=== PATIENT | female | born 1960 | race African-American/Black ===

== ENCOUNTER → 2022-07-01 | Outpatient (CLI) | payer SELFPAY ==
--- NOTE | 2022-07-01 07:58 | ECHOD_ITS ---
Reason For Study: CAD/ASHD Procedure This was a 2D Doppler, Color Flow transthoracic echocardiogram. Myocardial strain analysis was performed in this exam to aid in the assessment of cardiac function. Exam performed in department. Left Ventricle Normal LV size. Left ventricular systolic function is normal. The estimated ejection fraction is 60 %. Stage 1 diastolic dysfunction. No regional wall motion abnormalities noted. Right Ventricle Normal RV size. Normal systolic function. Atria Normal left atrium. Normal right atrium. Mitral Valve Normal mitral valve. Tricuspid Valve Normal tricuspid valve. Mild tricuspid valve insufficiency. Pulmonary artery systolic pressure is 20 mmHg. Aortic Valve Trisinus/trileaflet aortic valve. Pulmonic Valve Normal pulmonic valve. Great Vessels Mildly dilated aortic root. The pulmonary artery is normal size. Normal inferior vena cava. Pericardium/Pleural No pericardial effusion. MMode/2D Measurements & Calculations LVIDd: 4.6 cm IVSd: 0.70 cm Ao root diam: 3.7 cm LVIDs: 3.2 cm LVPWd: 0.77 cm RVDd: 3.2 cm FS: 32.0 % LAV(MOD-bp): 45.4 ml LVAd ap4: 22.7 cm2 LVAd ap2: 22.3 cm2 LAV(MOD-bp) Indexed: 22.2 ml/m2 LVLd ap4: 7.6 cm LVLd ap2: 7.6 cm LAV(MOD-sp2): 49.0 ml EDV(MOD-sp4): 56.4 ml EDV(MOD-sp2): 55.4 ml LAV(MOD-sp4): 32.7 ml EDV(sp4-el): 57.2 ml EDV(sp2-el): 55.9 ml LVAs ap4: 11.7 cm2 LVAs ap2: 11.9 cm2 LVLs ap4: 6.2 cm LVLs ap2: 6.6 cm ESV(MOD-sp4): 19.2 ml ESV(MOD-sp2): 18.8 ml ESV(sp4-el): 18.9 ml ESV(sp2-el): 18.2 ml EF(MOD-sp4): 66.0 % EF(MOD-sp2): 66.0 % EF(sp4-el): 67.0 % SV(MOD-sp4): 37.2 ml SV(MOD-sp2): 36.5 ml SV(sp4-el): 38.3 ml LA dimension(2D): 3.2 cm LA A4 area: 13.3 cm2 RA A4 area: 8.8 cm2 Doppler Measurements & Calculations MV E max taj: 63.8 cm/sec Lat Peak E' Taj: 10.9 cm/sec Med Peak E' Taj: 9.8 cm/sec MV A max taj: 77.2 cm/sec E/E' lat: 5.8 E/E' med: 6.5 MV E/A: 0.83 Ao V2 max: 109.4 cm/sec LV V1 max: 89.3 cm/sec PA V2 max: 65.0 cm/sec Ao max P.8 mmHg LV V1 max P.2 mmHg Ao V2 mean: 72.4 cm/sec Ao mean P.4 mmHg Ao V2 VTI: 20.8 cm TR max taj: 209.0 cm/sec TR max P.5 mmHg ECHO/Echo Complete Interpretation Summary Normal LV size. Left ventricular systolic function is normal. The estimated ejection fraction is 60 %. Pulmonary artery systolic pressure is 20 mmHg. Stage 1 diastolic dysfunction. The global longitudinal strain is normal. The global longitudinal strain = -19. 2 % (normal). Ordering Physician: Bin Heller Referring Physician: Bin Heller Performed By: Mabel Nash RDCS, RVT
--- NOTE | 2022-07-01 07:58 | CDU_ITS ---
Reason For Study: Bruit Rt. Velocities/BP Lt. Velocities/BP Prox CCA 74.7/23.9 cm/sec. Prox CCA 76.5/23.7 cm/sec. Mid CCA 74.7/25.2 cm/sec. Mid CCA 65.4/18.8 cm/sec. Dist CCA 68.2/25.2 cm/sec. Dist CCA 67.9/24.9 cm/sec. Prox ICA 75/23.4 cm/sec. Prox ICA 58.1/18.8 cm/sec. Mid ICA 69.6/28.9 cm/sec. Mid ICA 71.6/32.3 cm/sec. Dist ICA 94.8/35.3 cm/sec. Dist ICA 66.7/29.8 cm/sec. Rt. ICA/CCA = 1.27. Lt. ICA/CCA = 1.05. Prox ECA 55.2/9.5 cm/sec. Prox ECA 35.4/8.4 cm/sec. Rt. Vert. 52/20 cm/sec. Lt. Vert. 50.7/20 cm/sec. Right Extracranial There is intimal thickening but no significant atherosclerotic plaque noted in the right common carotid artery. There is intimal thickening but no significant atherosclerotic plaque noted in the right internal carotid artery. There is intimal thickening but no significant atherosclerotic plaque noted in the right external carotid artery. Antegrade flow is noted in the right vertebral artery. Left Extracranial There is intimal thickening but no significant atherosclerotic plaque noted in the left common carotid artery. There is intimal thickening but no significant atherosclerotic plaque noted in the left internal carotid artery. There is intimal thickening but no significant atherosclerotic plaque noted in the left external carotid artery. Antegrade flow is noted in the left vertebral artery. Procedure Carotid Duplex 71945. This is a Carotid Duplex examination using B-mode, color flow and specral Doppler. Exam performed in department. VL/Carotid Duplex Ultrasound Interpretation Summary Normal right extracranial internal carotid. Normal left extracranial internal carotid. The Right vertebral is patent and antegrade. The Left vertebral is patent and antegrade. Ordering Physician: Bin Heller Performed By: Aida Moser RVT
--- NOTE | 2022-07-01 08:01 | CT_ITS ---
STUDY: CT CHEST WITHOUT CONTRAST REASON FOR EXAM: Female, 62 years old. CAD RADIATION DOSAGE (If Supplied By Facility): CTDIvol = ( 9.94 ) mGy, DLP = ( 448.90 ) mGycm TECHNIQUE: Transaxial imaging was performed without the administration of intravenous contrast material. Multiplanar coronal and sagittal images were reformatted. Individualized dose optimization techniques were used for this CT. COMPARISON: No relevant priors. FINDINGS: CHEST There is evidence of bilateral breast prostheses. The lungs are normal. There is no demonstrated pleural abnormality. Normal heart and pericardium. No evidence of coronary artery calcification. Normal mediastinum. Normal hilar regions. Normal unenhanced pulmonary arteries. Normal aorta arch and descending thoracic aorta. Normal osseous structures. Small gallstones. CT/Limited Chest CT Cardiac Only IMPRESSION: Small gallstones. Electronically Signed: Yoni Grimm MD at 11:54 EDT ,
[2022-07-01 08:21] LABS: Absolute Lymphocyte Count 1.34 X10^3/uL (0.83-4.51); Absolute Neutrophil Count 0.9 X10^3/uL (2.0-7.7); Basophil# 0.01 X10^3/uL; Basophil% 0.4 % (0-1); Eosinophil# 0.04 X10^3/uL; Eosinophils% 1.6 % (0-5); Hematocrit 43.6 % (37-47); Hemoglobin 13.9 g/dL (12.0-15.0); Lymphocyte # 1.34 X10^3/ul (0.83-4.51); Lymphocyte % 52.1 % (19-41); Mean Corp Hgb Conc 31.9 g/dL (32-36); Mean Corpuscular Hgb 29.6 pg (27.0-32.0); Mean Corpuscular Volume 92.8 fL (81-99); Mean Platelet Vol. 11.5 fl (6.2-12.0); Monocyte# 0.27 X10^3/uL; Monocyte% 10.5 % (0-10); NRBC Flagged by Analyzer 0 % (0-5); Neutrophil # 0.91 X10^3/uL (2.7-7.7); Neutrophil % 35.4 % (47-70); POSITIVE DIFFERENTIAL YES; Platelet Count 171 K/mm3 (150-450); RBC Distribution Width CV 13.6 % (11.6-14.6); RBC Distribution Width SD 46.6 fl (35.1-43.9); White Blood Count 2.6 K/mm3 (4.4-11.0)
[2022-07-01 08:23] LABS: Differential Indicated SCAN CRITERIA MET
--- NOTE | 2022-07-01 09:00 | EKG12_ITS ---
Test Reason : CAD Blood Pressure : / mmHG Vent. Rate : 063 BPM Atrial Rate : 063 BPM P-R Int : 172 ms QRS Dur : 094 ms QT Int : 412 ms P-R-T Axes : 044 030 061 degrees QTc Int : 421 ms Normal sinus rhythm Normal ECG No previous ECGs available Confirmed by ZBIGNIEW DENISE, BIN ([id number]), department editor SOLEDAD ROY ([id number]) on 07/28/2022 8:48:00 AM Referred By: Bin Heller Confirmed By:BIN HELLER MD
[2022-07-01 09:08] LABS: Platelet Estimate ADEQUATE (ADEQ); Red Cell Morphology NORM C+C NORMAL (NORM C&C)
[2022-07-01 09:11] LABS: AST(SGOT) 24 U/L (15-37); Alanine Aminotransfer ALT/SGPT 40 U/L (13-56); Albumin, Serum 3.8 g/dL (3.2-5.0); Alkaline Phosphatase 41 U/L (45-117); Anion Gap 4 (5-15); BUN 13 mg/dL (7-18); BUN/Creat Ratio 16.5 RATIO (10-20); Calcium,Total 9.6 mg/dL (8.5-10.1); Chloride 108 mmol/L (98-107); Cholesterol 140 mg/dL (200); Creatinine, Serum 0.79 mg/dL (0.55-1.02); EST Glomerular Filtration Rate 79 mL/min (>60); Est Glom Filt Rate - Afr Amer 95 mL/min (>60); Globulin 3.7 g/dL (2.2-4.2); Glucose 92 mg/dL (74-106); High Density Lipoprotein 57 mg/dL; Potassium 4.5 mmol/L (3.5-5.1); Protein, Total 7.5 g/dL (6.4-8.2); Sodium Level 144 mmol/L (136-145); Thyroid Stim Hormone (TSH) 1.61 uIU/mL (0.358-3.74); Triglycerides 50 mg/dL; Very Low Density Lipoprotein 10 mg/dL (5-40)
[2022-07-01 11:05] VITALS: BP 133/89; PULSE 82; RESP 14; O2SAT 100
[2022-07-01 11:06] VITALS: BP 133/89; PULSE 79; RESP 16; O2SAT 100; BMI 24.0
--- NOTE | 2022-07-01 12:48 | CA.SCORE ---
Calcium Scoring Date of Study:: 07/01/22 Indications Indications: Rule out CAD Coronary Calcium Scoring: High-resolution Computed Tomographic imaging of the chest was performed on [07/01/22 ], with particular attention paid to the coronary arteries. Images from the examination were analyzed for the presence and extent of coronary artery calcification , using coronary calcium quantification software. The patient tolerated the procedure well and there were no complications. The results of the coronary calcification analysis are provided below. Findings Coronary Artery Left Main (LM): 0 Left Anterior Descending (LAD): 0 Left Circumflex (LCX): 0 Right Coronary Artery (RCA): 0 Total Agatston Score: 0 Percentile Ranking: Places the patient at the 25th percentile ranking Calcium Scoring Interpretation: 0 No identifiable atherosclerotic plaque. Very low cardiovascular disease risk. <5% chance of presence coronary artery disease A Negative Examination 1-10 Minimal Plaque burden. Significant coronary artery disease very unlikely. 11-100 Mild plaque burden. Likely mild or minimal coronary atherosclerosis. 101-400 Moderate plaque burden Moderate non-obstructive coronary artery disease highly likely. Over 400 Extensive plaque burden. High likelihood of at least one significant coronary stenosis (>50% diameter) Calcium Score: 0 Negative Examination
--- NOTE | 2022-07-01 12:51 | STRESSREP ---
Stress Test Report Exercise myocardial perfusion stress test. 62-year-old lady with a history of chest pain. Stress protocol: Resting EKG demonstrates normal sinus rhythm with a rate of 69 bpm normal intervals are noted resting blood pressure is 128/84 mmHg. The patient exercised according to the regular Alexandru protocol for 4 minutes and 31 seconds completing 131 seconds into stage II of the Alexandru protocol. The maximum heart rate attained was 157 bpm which was 98% of max impact at heart rate the maximum workload was 7 metabolic equivalents. At rest there were no ST or T wave changes noted to suggest ischemia and at peak exercise upsloping ST changes were noted which did not meet the criteria for ischemia. No clinical angina was noted. The peak blood pressure was 162/80 mmHg. Myocardial perfusion protocol. 11.1 mCi of technetium 99m sestamibi was injected at rest. The patient exercised according to the regular Alexandru protocol. At peak exercise 33.8 mCi of technetium 99m sestamibi was injected stress images were obtained stress and rest images were reconstructed in comparing the short axis vertical long and horizontal long axis. Gated images were also obtained. Perfusion SPECT analysis: Review of the stress images demonstrate normal uptake of tracer noted in all areas of the myocardium. The resting images similar demonstrate normal uptake of tracer noted in all areas of the myocardium. No areas of reversibility are noted to suggest ischemia and no previous infarct is noted. Gated SPECT analysis: The gated ejection fraction is 69%. Conclusion: Normal exercise myocardial perfusion stress test at a moderate workload. Preserved ejection fraction.
== END | disposition home or self-care (01) ==
PROVIDERS: Referring Provider Internal Medicine Cardiovascular Disease; Visit Provider Internal Medicine Cardiovascular Disease
DX: R07.9 Chest pain, unspecified (principal); I25.10 Atherosclerotic heart disease of native coronary artery without angina pectoris
CPT/HCPCS: 36415; 75571; 76380; 78452; 80053; 80061; 84443; 85025; 93005; 93017; 93306; 93880; A9500; A4216